=== PATIENT | male | born 1970 | race Caucasian/White ===

== ENCOUNTER 2024-11-14 23:25 | Emergency (ER) | payer MEDICARE, MEDICAID, SELFPAY ==
--- NOTE | ~2024-11-14 | CT_ITS ---
CT CERVICAL SPINE WITHOUT CONTRAST CLINICAL HISTORY: head injury Technique: Axial images thoracic inlet to skull base Sagittal and coronal reformats. No contrast CT images acquired with automatic exposure control for dose reduction DLP: 386 mGy-cm Comparison: None Findings: No acute fracture. Grade 1 anterolisthesis of C2 on 3. Vertebral bodies normal height and alignment. Mild degenerative changes. Disc spaces maintained. Prevertebral soft tissues within normal limits. Visualized lung apices: Nodular scarring. Visualized thyroid: Unremarkable. No enlarged cervical nodes. IMPRESSION: 1. No acute findings. 2. Nodular scarring along the apices. Consider CT chest in 6 months. Reviewed, dictated and finalized at location R.
--- NOTE | ~2024-11-14 | CT_ITS ---
CT HEAD NON-CONTRAST Clinical History: head injury Comparison: None Technique: Unenhanced axial images skull base to vertex Coronal, sagittal reformats CT images acquired with automatic exposure control for dose reduction DLP: 681 mGy-cm Findings: Sulci, ventricles: Unremarkable. No intracerebral hemorrhage. No evidence acute territorial infarct. No mass effect, midline shift. Bony calvarium intact. Visualized paranasal sinuses: Maxillary sinus retention cysts. Frontal sinus disease. Mastoid air cells: Clear. Left posterior scalp contusion. Chronic nasal fractures. IMPRESSION: 1. No acute intracranial findings. Reviewed, dictated and finalized at location R.
[2024-11-14 23:15] VITALS: BP 116/77; PULSE 77; RESP 18; O2SAT 100
--- NOTE | 2024-11-14 23:49 | ED_ITS ---
HPI - General Adult General Chief complaint: Head Injury Stated complaint: head injury History of Present Illness HPI narrative: This is a 54-year-old male schizophrenia who lives in a group home presenting for a head injury. Per group home staff he was requesting medication which bairon christensen did not give him. He then threw himself to the ground striking his head. He did not lose conscious. He then got up and struck his head on the wall. He was given Haldol and Benadryl. He was then sent to the hospital for evaluation. No use of blood thinners. The patient is somewhat sedated at this point which makes it difficult to obtain much history. His only complaint time is soreness in his neck. Related Data Allergies Allergy/AdvReac Type Severity Reaction Status Date / Time No Known Allergies Allergy Verified 11/15/24 00:15 Exam Narrative: APPEARANCE: No apparent distress. Patient is sedated Head: 1.5 cm laceration to the left eyebrow abrasion over the right forehead EYES: EOMI, NOSE: Atraumatic NECK: No midline cervical tenderness, left paracervical tenderness RESPIRATORY: No increased rate of breathing CT AP CARDIOVASCULAR: RRR, ABDOMINAL: Non-distended MUSCULOSKELETAl: No obvious deformities NEURO: Alert. Moving for 4 extremities to command SKIN:: Warm, dry. Normal color PSYCHIATRIC: Normal affect Course Vital Signs Vital signs: Vital Signs Pulse Rate 77 11/14/24 23:15 Respiratory Rate 18 11/14/24 23:15 Blood Pressure 116/77 11/14/24 23:15 Pulse Oximetry 100 11/14/24 23:15 Oxygen Delivery Room Air 11/14/24 23:15 Pulse Rate 77 11/14/24 23:15 Respiratory Rate 18 11/14/24 23:15 Blood Pressure 116/77 11/14/24 23:15 Pulse Oximetry 100 11/14/24 23:15 Oxygen Delivery Room Air 11/14/24 23:15 Procedures Laceration Laceration 1: Date: 11/15/24 Site: face Side (If applicable): left Size (cm): 1.5 Description: linear Depth: simple, single layer Local Anesthetic: bupivacaine 0.25% Amount of anesthesia used (mL): 2 ====== Skin Level ====== Skin layer closed with: prolene Size (cm): 5-0 Number of sutures: 3 Technique: simple, interrupted ====== Subcutaneous Layer ====== ====== Muscle Layer ====== ====== Tendon Layer ====== Medical Decision Making MDM Narrative Medical decision making narrative: -Course: 54-year-old male schizophrenia and behavioral issues presenting with head trauma. Laceration over left eyebrow was repaired. CT of the brain and C- spine is negative for acute injury. Patient be discharged back to the group home. Suture removal in 5-7 days. Return precautions for infection. -DDX includes but is not limited to: Concussion, intracranial hemorrhage, facial laceration Vital Signs Vital Signs: Vital Signs Pulse Rate 77 11/14/24 23:15 Respiratory Rate 18 11/14/24 23:15 Blood Pressure 116/77 11/14/24 23:15 Pulse Oximetry 100 11/14/24 23:15 Oxygen Delivery Room Air 11/14/24 23:15 Pulse Rate 77 11/14/24 23:15 Respiratory Rate 18 11/14/24 23:15 Blood Pressure 116/77 11/14/24 23:15 Pulse Oximetry 100 11/14/24 23:15 Oxygen Delivery Room Air 11/14/24 23:15 Discharge Plan Discharge Clinical Impression: Closed head injury, Laceration Patient Disposition: Home Condition: Stable Instructions: Antibiotic Form, Care For Your Stitches (DC) Additional Instructions: Thomas was seen for a laceration to his eyebrow. Sutures need to be removed in 5-7 days. Return if you develop signs of infection. Patient Language: Micronesian
[2024-11-15] VITALS (9 sets, daily range): BP systolic 101–122; BP diastolic 57–77; O2SAT 99–100
[2024-11-15] MEDS: TETANUS,DIPHTHERIA,AC PERTUSSIS ADULT (0.5 ML) BOOSTRIX IM (00:10)
== END 2024-11-15 02:08 ==
LOC: ANHED 11-15 00:15
PROVIDERS: Emergency Provider Emergency Medicine; PCP Internal Medicine
DX: S01.81XA Laceration without foreign body of other part of head, initial encounter (principal); Z23 Encounter for immunization; F20.9 Schizophrenia, unspecified; W22.09XA Striking against other stationary object, initial encounter; W18.39XA Other fall on same level, initial encounter
CPT/HCPCS: 12011; 70450; 72125; 90471; 90715; 99284

== ENCOUNTER 2025-01-17 05:44 | Emergency (ER) | payer MEDICARE, MEDICAID, SELFPAY ==
[2025-01-17] VITALS (7 sets, daily range): BP systolic 103–149; BP diastolic 71–105; PULSE 84–129; RESP 18–97; TEMP 36.4–36.8; O2SAT 95–98
--- NOTE | ~2025-01-17 | XR_ITS ---
EXAMINATION: XR chest 1V portable DATE: 01/17/2025 07:49 INDICATION: Altered mental status TECHNIQUE: A single frontal view of the chest was obtained. COMPARISON: None. FINDINGS: Left-sided electronic device overlying the upper chest with leads extending into the lower left neck noted. Lung barrera and heart shadow appear within normal limits. No pneumothorax or subphrenic free air seen. IMPRESSION: 1. The lungs are clear and heart size normal. 2. Left-sided chest electronic device with leads extending into the neck of uncertain significance. Reviewed, dictated and finalized at location A. L BALER IMPRESSION: 1. The lungs are clear and heart size normal. 2. Left-sided chest electronic device with leads extending into the neck of unc ertain significance.
--- NOTE | 2025-01-17 06:10 | PC.NURSE ---
Pt trying to climb over bed rail. This nurse asked pt to lay back in bed, pt responded I'm not staying in this fucking bed. Security at bedside and moved pt up in bed. Will continue to monitor.
[2025-01-17 08:17] LABS: Hematocrit 45.6 % (42.0-52.0); Hemoglobin 15.1 g/dL (14.0-18.0); Immature Granulocyte Percent A 0.2 % (0-0.5); Lymphocytes Absolute Auto 2.19 K/mm3 (0.9-3.2); Mean Corpuscular HGB Conc 33.1 g/dl (32-36); Mean Corpuscular Hemoglobin 30.3 pg (26-34); Mean Corpuscular Volume 91.4 fl (80-100); Nucleated Red Blood Cells Absolute Auto 0.000 K/mm3 (0.0-0.012); Nucleated Red Blood Cells Perc 0.0 % (0.0-0.2); Platelet Count Result 183 k/mm3 (150-375); Red Blood Count 4.99 M/mm3 (4.6-6.20); White Blood Count 6.3 K/mm3 (4.5-10.0)
[2025-01-17 08:39] LABS: Alanine Aminotransferase 24 U/L (6-50); Albumin Level 4.4 g/dL (3.5-5.1); Alkaline Phosphatase 66 U/L (38-126); Anion Gap 8 mmol/L (4-12); Aspartate Amino Transferase 28 U/L (17-59); Bilirubin,Total 0.4 mg/dL (0.2-1.3); Blood Urea Nitrogen 17 mg/dL (9-20); Calcium 9.5 mg/dL (8.4-10.2); Carbon Dioxide 28 mmol/L (22-30); Chloride 104 mmol/L (98-107); Estimated CRCL calculation 83 ml/min; Estimated Glomerular Filt Rate > 60; Glucose 95 mg/dL (65-110); Potassium 4.5 mmol/L (3.4-5.0); Sodium 140 mmol/L (137-145); Total Protein 7.9 g/dL (6.3-8.2)
--- NOTE | 2025-01-17 08:43 | ED_ITS ---
HPI - General Adult General Chief complaint: Unspecified Stated complaint: COMBATIVE Time Seen by Provider: 01/17/25 07:07 History of Present Illness HPI narrative: Pt presents after having combative behavior at local [place]. Pt has hx of schizophrenia, TBI and parkinson's. Pt has history of similar behavior in past. Pt calm now. Related Data Allergies Allergy/AdvReac Type Severity Reaction Status Date / Time Hydantoins Allergy Unknown Unknown Verified 01/17/25 12:04 2nd generation antipsychotics AdvReac Severe Other Uncoded 01/17/25 11:56 Review of Systems 2 Review of Systems: ROS unobtainable: Yes unobtainable due to mental status Exam 2 Const: General: comfortable and no acute distress HENMT: Head: normal to inspection Mouth: Yes Normal oral and palatal mucosa present Neck: Neck: normal visual inspection, full ROM and no meningeal signs Resp: Effort & Inspection: normal respiratory effort Auscultation: clear to auscultation bilaterally Cardio: Rate: regular rate Rhythm: regular rhythm GI: Inspection: normal to inspection Auscultation: normal bowel sounds Back/Spine/Pelvis: Back: no CVA tenderness Skin: General skin exam: normal color and no rashes or lesions noted Extrem: General: normal to inspection and full ROM Psych: Appearance: other (non verbal and not answering questions) Course Vital Signs Vital signs: Vital Signs Temperature 98.2 F 01/17/25 05:50 Pulse Rate 101 H 01/17/25 05:50 Respiratory Rate 20 01/17/25 05:50 Blood Pressure 117/80 01/17/25 05:50 Pulse Oximetry 98 01/17/25 05:50 Temperature 97.6 F 01/17/25 16:30 Pulse Rate 84 01/17/25 16:30 Respiratory Rate 97 H 01/17/25 16:30 Blood Pressure 103/71 01/17/25 16:30 Pulse Oximetry 97 01/17/25 16:30 Medical Decision Making MDM Narrative Medical decision making narrative: Pt apparently combative with staff but now calm. will run tests to rule out infection or other cause of behavior. No signs of infection. Pt combative here once controlled with zyprexa. ok to discharge back. Vital Signs Vital Signs: Vital Signs Temperature 98.2 F 01/17/25 05:50 Pulse Rate 101 H 01/17/25 05:50 Respiratory Rate 20 01/17/25 05:50 Blood Pressure 117/80 01/17/25 05:50 Pulse Oximetry 98 01/17/25 05:50 Temperature 97.6 F 01/17/25 16:30 Pulse Rate 84 01/17/25 16:30 Respiratory Rate 97 H 01/17/25 16:30 Blood Pressure 103/71 01/17/25 16:30 Pulse Oximetry 97 01/17/25 16:30 Lab Data 01/17/25 08:08 01/17/25 08:08 Labs: Lab Results 01/17/25 01/17/25 Range/Units 08:08 08:33 WBC 6.3 (4.5-10.0) K/mm3 RBC 4.99 (4.6-6.20) M/mm3 Hgb 15.1 (14.0-18.0) g/dL Hct 45.6 (42.0-52.0) % MCV 91.4 (80-100) fl MCH 30.3 (26-34) pg MCHC 33.1 (32-36) g/dl RDW 13.0 (11.5-14.5) % Plt Count 183 (150-375) k/mm3 MPV 9.9 (7.4-10.4) fl Immature Gran % (Auto) 0.2 (0-0.5) % Neut % (Auto) 47.0 (45.5-73.1) % Lymph % (Auto) 35.0 (18.3-44.2) % [place] % (Auto) 14.7 H (2.6-8.5) % Eos % (Auto) 2.6 (0-4.4) % Baso % (Auto) 0.5 (0.2-1.2) % Lymph # (Auto) 2.19 (0.9-3.2) K/mm3 [place] # (Auto) 0.9 H (0.1-0.6) K/mm3 Eos # (Auto) 0.2 (0-0.3) K/mm3 Baso # (Auto) 0.0 (0.0-0.1) K/mm3 Abs Immat Gran (auto) 0.01 (0.00-0.031) K/mm3 Absolute Neuts (auto) 2.9 (1.3-6.7) K/mm3 Absolute Nucleated RBC 0.000 (0.0-0.012) K/mm3 Nucleated RBC % 0.0 (0.0-0.2) % Sodium 140 (137-145) mmol/L Potassium 4.5 (3.4-5.0) mmol/L Chloride 104 (98-107) mmol/L Carbon Dioxide 28 (22-30) mmol/L Anion Gap 8 (4-12) mmol/L BUN 17 (9-20) mg/dL Creatinine 0.85 (0.7-1.3) mg/dL Estim Creat Clear Calc 83 ml/min Estimated GFR > 60 (59 - ) Glucose 95 (65-110) mg/dL Lactic Acid 1.5 (0.7-2.0) mmol/L Calcium 9.5 (8.4-10.2) mg/dL Total Bilirubin 0.4 (0.2-1.3) mg/dL AST 28 (17-59) U/L ALT 24 (6-50) U/L Alkaline Phosphatase 66 (38-126) U/L Total Protein 7.9 (6.3-8.2) g/dL Albumin 4.4 (3.5-5.1) g/dL Urine Color Yellow (Yellow) Urine Appearance Turbid H (Clear) Urine pH 8.5 (5.0-9.0) Ur Specific [place] 1.022 (1.001-1.035) Urine Protein Trace (Negative) mg/dL Urine Glucose (UA) Negative (Negative) mg/dL Urine Ketones Negative (Negative) mg/dL Ur Blood (Man) Negative (Negative) Urine Nitrate Negative (Negative) Urine Bilirubin Negative (Negative) Urine Urobilinogen 1.0 (<2.0) mg/dL Add Ur Microanalysis Reviewed Leukocyte Esterase Rfl Negative (Negative) LUIS/UL Urine RBC 0-2 (0-2) /hpf Urine WBC 0-5 (0-3) /hpf Ur Squamous Epith Cells None seen (Few) /hpf Amorphous Sediment Moderate H (None) Urine Bacteria None seen /hpf Urine Casts 0-2 Imaging Data Attestation: I personally reviewed and interpreted this imaging study as follows: My impression: no acute process Radiologist's impression: [facility] [address] [place] [id number] XRay Report Signed Patient: Thomas Locke : 1970 MR#: [id number] Age: 54 Acct:[id number] Loc: [facility] ADM Date: 01/17/[address]: Ordering Physician: Shara Molina III, DO Date of Service: 01/17/25 Procedure(s): XR chest 1V portable Accession Number(s): [id number] cc: Shara Molina III, DO; Magdalena,Arianna Lopez~ EXAMINATION: XR chest 1V portable DATE: 01/17/2025 07:49 INDICATION: Altered mental status TECHNIQUE: A single frontal view of the chest was obtained. COMPARISON: None. FINDINGS: Left-sided electronic device overlying the upper chest with leads extending into the lower left neck noted. Lung barrera and heart shadow appear within normal limits. No pneumothorax or subphrenic free air seen. IMPRESSION: 1. The lungs are clear and heart size normal. 2. Left-sided chest electronic device with leads extending into the neck of uncertain significance. Reviewed, dictated and finalized at location A. HOSPICE AIDE Please be advised this is a medical document. It is intended for [id number] communication. It is written in medical language and may contain unfamiliar abbreviations or verbiage. Medical documents are intended to carry relevant information, facts as evident, and the clinical opinion of the practitioner at the time of the encounter. This report may have been done utilizing a voice recognition system. Attempts have been made to correct errors. However, there may be uncorrected grammatical, spelling, and recognition errors present. The file time of this note does not necessarily represent the time of service. Dictated By: Michael Stubbs MD 01/17/25 0808 Signed By: <Electronically signed by Michael Stubbs MD in OV> 01/17/25 0809 Restraint Face to Face Eval ED Reason for Restraint Aggressive/Violent Evaluation Findings Date Seen by EDP: 01/17/25 Time Seen by EDP: 07:10 Pt's immediate situation:: Pt initially calm but then became aggresive and violent trying to get off cart. Pt initially given Zyprexa 10 mg IM Pt's reaction to intervention:: Pt became more agitated and trying to get off cart soft restraints applied after multiple attempts at verbal deescalation. Pt also received Haldol 10 mg and valium 5 mg then valium 10 mg IM then droperidol 5 mg IM. Facility contacted. recommended Benadryl IM as this has helped in past. Pt moved to no stimulating room. Pt finally calmed down and is ready for transfer back to facility. soft restraints removed prior and pt tolerated well. Pt's med/behavioral condition:: see above Restraint or Seclusion Need Need to continue or terminate:: see above Discharge Plan Discharge Clinical Impression: Combative behavior Patient Disposition: NH Halfway/Asst Living Condition: Improved Instructions: Antibiotic Form, Schizophrenia (ED) Patient Language: Wallisian Follow-up/Referrals: Magdalena,Jessica Keller [Primary Care Provider]
[2025-01-17 08:56] LABS: Add Urine Microscopic? YES; Appearance Urine Turbid (Clear); Glucose Urine UA Negative (Negative); Leukocyte Esterase Ur Negative LEU/UL (Negative); Need Manual Microscopic Reviewed; Nitrate Urine Negative (Negative); Non Pathogenic Casts 0-2; Specific Grav Ur 1.022 (1.001-1.035)
[2025-01-17] MEDS: OLANZapine 10 MG, WATER, STERILE FOR INJECTION 2.1 ML IM (08:57)
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
--- NOTE | 2025-01-17 11:20 | PC.NURSE ---
This RN spoke with Alexander at [facility] letting him know that pt. is being d/c back to facility. Alexander alerted this RN that the pt. cannot have 2nd generation antipsychotics d/t having NMS. Alexander states that pt. can only have 1st generation antipsychotics. Alexander concerned d/t pt. receiving Zyprexa this morning. Medication given prior to this RN coming on shift at [address] Molina updated of new information. Adverse reaction added to pt. chart in [facility]. Reaction not listen on adverse reaction list on paperwork from facility. Alexander states they will add that under his allergy/adverse reaction list. VS obtained. No NMS reaction at this time.
--- NOTE | 2025-01-17 11:30 | PC.NURSE ---
This RN attempted to call pt. primary contact and guardian Arian Lynn with no answer.
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
[2025-01-17] MEDS: diazePAM INJ (*CRX) 10 MG/2 ML SYRINGE 5 MG IM (11:53)
[2025-01-17] MEDS: HALOPERIDOL LACTATE 5 MG/ML VIAL 10 MG IM (11:53)
--- NOTE | 2025-01-17 13:00 | PC.NURSE ---
Pt. continues to yell hey motherfucker! repeatedly at staff. SHITAL Lehman assisted pt. with drinking a soda. Pt. able to drink with no signs of aspiration. Security remains at bedside.
[2025-01-17] MEDS: diazePAM INJ (*CRX) 10 MG/2 ML SYRINGE IM (13:18)
--- NOTE | 2025-01-17 14:17 | PC.NURSE ---
Pt. moved to a private room to help minimize stimulation.
--- NOTE | 2025-01-17 14:50 | PC.NURSE ---
This RN spoke with facility staff, Alexander. Alexander notified of pt. increased agitation since prior phone call. Alexander alerted this RN of tips to help calm down the pt. Dr. Molina notified of phone conversation. See MAR for additional interventions. Goal for [facility] as well is for pt. to be in a place where he can safely be transported back to [facility] via EMS
--- NOTE | 2025-01-17 16:43 | PC.NURSE ---
Report given to [facility], all questions answered. Pt. calm at time of transport.
--- NOTE | 2025-01-17 16:50 | PC.NURSE ---
Kae phoned by this RN and notified that pt. is en route to them via EMS.
== END 2025-01-17 16:50 ==
PROVIDERS: Emergency Provider Emergency Medicine; PCP Internal Medicine
DX: R45.6 Violent behavior (principal); F20.9 Schizophrenia, unspecified; G20.A1 Parkinson's disease without dyskinesia, without mention of fluctuations; Z87.820 Personal history of traumatic brain injury
CPT/HCPCS: 36415; 71045; 80053; 81001; 83605; 85025; 96372; 99284; J1200; J1630; J1790; J2359; J3360

== ENCOUNTER 2025-01-27 08:47 | Emergency (ER) | payer MEDICARE, MEDICAID, SELFPAY ==
[2025-01-27] VITALS (10 sets, daily range): BP systolic 102–144; BP diastolic 70–94; PULSE 72–107; RESP 10–16; O2SAT 95–100
--- NOTE | ~2025-01-27 | XR_ITS ---
Examination: XR chest 1V portable Clinical History: Combative Comparison: 01/17/2025 Technique: Portable AP Findings: Left vagal stimulator. Heart size normal. Lungs clear. No acute bony abnormality. IMPRESSION: 1. No acute cardiopulmonary findings given portable technique. Reviewed, dictated and finalized at location R. DER LABORER
--- NOTE | ~2025-01-27 | CT_ITS ---
CT HEAD NON-CONTRAST Clinical History: head injury Comparison: 11/14/2024 Technique: Unenhanced axial images skull base to vertex Coronal, sagittal reformats CT images acquired with automatic exposure control for dose reduction DLP: 908 mGy-cm Findings: Sulci, ventricles: Unremarkable. No intracerebral hemorrhage. No evidence acute territorial infarct. No mass effect, midline shift. Bony calvarium intact. Visualized paranasal sinuses: Clear. Mastoid air cells: Clear. Chronic nasal fractures. IMPRESSION: 1. No acute intracranial findings. Reviewed, dictated and finalized at location R. TOR CRANE ENGINEER
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
[2025-01-27] MEDS: MIDAZOLAM HCL (*CRX) 2 MG/2 ML VIAL 5 MG IM (09:14)
[2025-01-27 09:47] LABS: Hematocrit 37.5 % (42.0-52.0); Hemoglobin 12.5 g/dL (14.0-18.0); Immature Granulocyte Percent A 0.3 % (0-0.5); Lymphocytes Absolute Auto 1.58 K/mm3 (0.9-3.2); Mean Corpuscular HGB Conc 33.3 g/dl (32-36); Mean Corpuscular Hemoglobin 30.4 pg (26-34); Mean Corpuscular Volume 91.2 fl (80-100); Nucleated Red Blood Cells Absolute Auto 0.000 K/mm3 (0.0-0.012); Nucleated Red Blood Cells Perc 0.0 % (0.0-0.2); Platelet Count Result 177 k/mm3 (150-375); Red Blood Count 4.11 M/mm3 (4.6-6.20); White Blood Count 3.9 K/mm3 (4.5-10.0)
[2025-01-27 10:16] LABS: Add Urine Microscopic? YES; Appearance Urine Clear (Clear); Glucose Urine UA Negative (Negative); Leukocyte Esterase Ur Negative LEU/UL (Negative); Nitrate Urine Negative (Negative); Non Pathogenic Casts 0-2; Specific Grav Ur 1.025 (1.001-1.035)
[2025-01-27 10:45] LABS: Alanine Aminotransferase 28 U/L (6-50); Albumin Level 3.9 g/dL (3.5-5.1); Alkaline Phosphatase 61 U/L (38-126); Anion Gap 8 mmol/L (4-12); Aspartate Amino Transferase 40 U/L (17-59); Bilirubin,Total 0.3 mg/dL (0.2-1.3); Blood Urea Nitrogen 17 mg/dL (9-20); Calcium 8.8 mg/dL (8.4-10.2); Carbon Dioxide 25 mmol/L (22-30); Chloride 105 mmol/L (98-107); Estimated Glomerular Filt Rate > 60; Glucose 91 mg/dL (65-110); Potassium 3.8 mmol/L (3.4-5.0); Sodium 138 mmol/L (137-145); Total Protein 7.0 g/dL (6.3-8.2)
[2025-01-27 10:52] LABS: Cannabinoid Screen Urine Negative (Negative)
[2025-01-27 11:17] LABS: Thyroid Stimulating Hormone 3.890 uIU/mL (0.465-4.680)
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
[2025-01-27] MEDS: diazePAM INJ (*CRX) 10 MG/2 ML SYRINGE 5 MG IV PUSH ×2 (13:35→15:07)
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
--- NOTE | 2025-01-27 13:58 | PC.NURSE ---
RN removed violent restraints at 1208.
--- NOTE | 2025-01-27 14:17 | PC.NURSE ---
RN called crisis and spoke with Cyndi at 1417, they will send someone out to evaluate pt.
--- NOTE | 2025-01-27 14:18 | PC.NURSE ---
Spoke with SHITAL Crain at [facility] for a pt update.
--- NOTE | 2025-01-27 16:07 | PC.NURSE ---
Rn removed lockable left wrist restraint per EDP verbal order
[2025-01-27] MEDS: DIVALPROEX SODIUM ER 500 MG TAB.24H 1000 MG PO (16:51)
--- NOTE | 2025-01-27 16:57 | PC.NURSE ---
removed lockable right ankle restraint
--- NOTE | 2025-01-27 17:14 | PC.NURSE ---
RN removed locked left ankle restraint from patient
--- NOTE | 2025-01-27 17:53 | PC.NURSE ---
Called report to Breann at [facility] at 1750.
== END 2025-01-27 19:15 ==
PROVIDERS: Emergency Provider Emergency Medicine; PCP Internal Medicine
DX: R45.1 Restlessness and agitation (principal); S01.112A Laceration without foreign body of left eyelid and periocular area, initial encounter; G20.C Parkinsonism, unspecified; G40.A09 Absence epileptic syndrome, not intractable, without status epilepticus; F20.9 Schizophrenia, unspecified; Z87.820 Personal history of traumatic brain injury; X58.XXXA Exposure to other specified factors, initial encounter
CPT/HCPCS: 36415; 70450; 71045; 80053; 80307; 81001; 82077; 84443; 85025; 96372; 96374; 96376; 99284; A9270; J2250; J3360

== ENCOUNTER 2025-02-16 14:11 | Emergency (ER) | payer MEDICARE, MEDICAID, SELFPAY ==
[2025-02-16] VITALS (14 sets, daily range): BP systolic 92–136; BP diastolic 62–84; PULSE 68–87; RESP 11–20; TEMP 36.4–36.7; O2SAT 97–100
--- NOTE | ~2025-02-16 | XR_ITS ---
EXAMINATION: XR chest 1V portable DATE: 02/16/2025 14:37 INDICATION: Seizure. TECHNIQUE: A single frontal view of the chest was obtained. COMPARISON: Chest x-ray dated 01/27/2025 FINDINGS: Heart size is normal. Significant atherosclerotic aorta. Lungs do not show acute findings. Neurostimulator is in place similar to prior study. IMPRESSION: 1. No acute findings. Atherosclerotic aorta. Reviewed, dictated and finalized at location T. CHUTE CROWN SEWER
--- NOTE | ~2025-02-16 | XR_ITS ---
EXAMINATION: XR wrist LT min 3V, 02/16/2025 17:30 FISHER PURSE SEINE HISTORY: pain COMPARISON: No comparisons available. Findings: No acute fracture or malalignment. No significant degenerative changes. Soft tissues unremarkable. Impression: No acute fracture or malalignment. Reviewed, dictated and finalized at location P. ER PURSE SEINE Impression: No acute fracture or malalignment.
[2025-02-16 14:35] LABS: Hematocrit 37.6 % (42.0-52.0); Hemoglobin 12.4 g/dL (14.0-18.0); Immature Granulocyte Percent A 0.7 % (0-0.5); Lymphocytes Absolute Auto 1.35 K/mm3 (0.9-3.2); Mean Corpuscular HGB Conc 33.0 g/dl (32-36); Mean Corpuscular Hemoglobin 30.2 pg (26-34); Mean Corpuscular Volume 91.5 fl (80-100); Nucleated Red Blood Cells Absolute Auto 0.000 K/mm3 (0.0-0.012); Nucleated Red Blood Cells Perc 0.0 % (0.0-0.2); Platelet Count Result 282 k/mm3 (150-375); Red Blood Count 4.11 M/mm3 (4.6-6.20); White Blood Count 6.2 K/mm3 (4.5-10.0)
[2025-02-16 14:51] LABS: Alanine Aminotransferase 23 U/L (6-50); Albumin Level 4.3 g/dL (3.5-5.1); Alkaline Phosphatase 65 U/L (38-126); Anion Gap 10 mmol/L (4-12); Aspartate Amino Transferase 32 U/L (17-59); Bilirubin,Total 0.4 mg/dL (0.2-1.3); Blood Urea Nitrogen 11 mg/dL (9-20); Calcium 8.9 mg/dL (8.4-10.2); Carbon Dioxide 22 mmol/L (22-30); Chloride 105 mmol/L (98-107); Estimated Glomerular Filt Rate > 60; Glucose 95 mg/dL (65-110); Potassium 4.0 mmol/L (3.4-5.0); Sodium 137 mmol/L (137-145); Total Protein 8.0 g/dL (6.3-8.2)
[2025-02-16 15:32] LABS: Magnesium 1.8 mg/dL (1.6-2.3)
--- NOTE | 2025-02-16 17:28 | ED.GENADULT ---
HPI - General Adult General Chief complaint: Seizure Stated complaint: seizure Time Seen by Provider: 02/16/25 14:38 History of Present Illness HPI narrative: Patient 54-year-old gentleman presents emergency department with chief complaint of seizures. The patient has prior history of seizures and had 3 generalized seizures at the facility where he is resident of facility reports that he is taking his seizures patient has prior history of seizures in the past and had a severe traumatic brain injury and schizophrenia. Related Data Allergies Allergy/AdvReac Type Severity Reaction Status Date / Time Hydantoins Allergy Unknown Unknown Verified 01/17/25 12:04 2nd generation antipsychotics AdvReac Severe Other Uncoded 01/17/25 11:56 Review of Systems Review of Systems: A 10 system review of systems was completed on the patient and is negative except for what is stated in the HPI. Nursing and ancillary documentation was reviewed. [facility] Past Medical History Medical History Schizophrenia Focal and partial seizures Malignant neuroleptic syndrome Subdural hemorrhage Traumatic brain injury Parkinsonism Exam Narrative: GENERAL: Well-appearing, well-nourished, and in no acute distress. HEAD: Normocephalic, atraumatic. EYES: PERRLA and EOMI. ENT: Nares clear, no rhinorrhea or epistaxis. Mucous membranes moist. NECK: Supple. CHEST: Clear to auscultation. No respiratory distress. HEART: Regular rate and rhythm. No murmur heard. Normal peripheral pulses. ABDOMEN: Soft, nontender, nondistended, normal active bowel sounds. EXTREMITIES: Normal range of motion. No edema. SKIN: Warm, dry, no rash. NEURO: No focal deficits. Alert and oriented to baseline status. PSYCH: Normal mood and affect. Course Vital Signs Vital signs: Vital Signs Temperature 36.4 C 02/16/25 13:54 Pulse Rate 87 02/16/25 13:54 Respiratory Rate 16 02/16/25 13:54 Blood Pressure 108/62 02/16/25 13:54 Pulse Oximetry 97 02/16/25 13:54 Temperature 36.4 C 02/16/25 13:54 Pulse Rate 80 02/16/25 17:47 Respiratory Rate 16 02/16/25 17:44 Blood Pressure 136/84 02/16/25 17:44 Pulse Oximetry 98 02/16/25 17:44 Oxygen Delivery Room Air 12/12/25 14:10 [facility] Differential Diagnosis Differential Diagnosis: Breakthrough seizure, generalized seizure, infection, electrolyte abnormality Patient is back to his baseline neurological status upon arrival to the emergency department the patient was initially postictal patient refused CT head chest x-ray showed no focal infiltrate the patient was complaining pain in his left hand where the IV was an x-ray was obtained showed no evidence of fracture laboratory studies did show a slightly elevated lactate this was after the patient had had 3 seizures prior to arrival electrolytes otherwise within normal limits urinalysis showed no evidence UTI valproic acid was 53.9 Patient will be discharged back to his facility a we recommended to follow-up with his neurologist Lab Data 02/16/25 14:02/16/25: Labs: Lab Results 02/16/25 02/16/25 Range/Units 14: 18:28 WBC 6.2 (4.5-10.0) K/mm3 RBC 4.11 L (4.6-6.20) M/mm3 Hgb 12.4 L (14.0-18.0) g/dL Hct 37.6 L (42.0-52.0) % MCV 91.5 (80-100) fl MCH 30.2 (26-34) pg MCHC 33.0 (32-36) g/dl RDW 13.6 (11.5-14.5) % Plt Count 282 D (150-375) k/mm3 MPV 9.6 (7.4-10.4) fl Immature Gran % (Auto) 0.7 H (0-0.5) % Neut % (Auto) 64.2 (45.5-73.1) % Lymph % (Auto) 22.0 (18.3-44.2) % [place] % (Auto) 9.6 H (2.6-8.5) % Eos % (Auto) 2.8 (0-4.4) % Baso % (Auto) 0.7 (0.2-1.2) % Lymph # (Auto) 1.35 (0.9-3.2) K/mm3 [place] # (Auto) 0.6 (0.1-0.6) K/mm3 Eos # (Auto) 0.2 (0-0.3) K/mm3 Baso # (Auto) 0.0 (0.0-0.1) K/mm3 Abs Immat Gran (auto) 0.04 H (0.00-0.031) K/mm3 Absolute Neuts (auto) 4.0 (1.3-6.7) K/mm3 Absolute Nucleated RBC 0.000 (0.0-0.012) K/mm3 Nucleated RBC % 0.0 (0.0-0.2) % Sodium 137 (137-145) mmol/L Potassium 4.0 (3.4-5.0) mmol/L Chloride 105 (98-107) mmol/L Carbon Dioxide 22 (22-30) mmol/L Anion Gap 10 (4-12) mmol/L BUN 11 D (9-20) mg/dL Creatinine 0.79 (0.7-1.3) mg/dL Estim Creat Clear Calc Not Reportable Estimated GFR > 60 (59 - ) Glucose 95 (65-110) mg/dL Lactic Acid 3.5 H (0.7-2.0) mmol/L Calcium 8.9 (8.4-10.2) mg/dL Magnesium 1.8 (1.6-2.3) mg/dL Total Bilirubin 0.4 (0.2-1.3) mg/dL AST 32 (17-59) U/L ALT 23 (6-50) U/L Alkaline Phosphatase 65 (38-126) U/L Total Protein 8.0 (6.3-8.2) g/dL Albumin 4.3 (3.5-5.1) g/dL Urine Color Yellow (Yellow) Urine Appearance Clear (Clear) Urine pH 7.5 (5.0-9.0) Ur Specific [place] 1.014 (1.001-1.035) Urine Protein Negative (Negative) mg/dL Urine Glucose (UA) Negative (Negative) mg/dL Urine Ketones Negative (Negative) mg/dL Ur Blood (Man) Negative (Negative) Urine Nitrate Negative (Negative) Urine Bilirubin Negative (Negative) Urine Urobilinogen 1.0 (<2.0) mg/dL Leukocyte Esterase Rfl Negative (Negative) LUIS/UL Valproic Acid 53.9 (50-120) ug/mL Imaging Data Radiologist's impression: ITS Impressions Chest X-Ray 02/16/25 14:38 IMPRESSION: 1. No acute findings. Atherosclerotic aorta. Wrist X-Ray 02/16/25 17:39 Impression: No acute fracture or malalignment. Discharge Plan Discharge Clinical Impression: Breakthrough seizure Patient Disposition: NH Senior Living/Asst Living Condition: Stable Instructions: Antibiotic Form, Epilepsy (ED) Additional Instructions: Please follow-up with your neurologist it is recommended that he call to schedule an appointment as soon as possible Patient Language: Northern Irish Follow-up/Referrals: Magdalena,Jessica Keller [Primary Care Provider] Time of Disposition: 20:06
--- NOTE | 2025-02-16 17:47 | PC.NURSE ---
pt seen trying to exit the bed, climbed over the bed, before touching the floor, pt was helped by this video games storywriter. pt asking to use the restroom. pt assisted to bedside commode, urine obtained. a few minutes later, pt complained of pain at IV site in left wrist. order obtained for xray
[2025-02-16] MEDS: MIDAZOLAM HCL (*CRX) 2 MG/2 ML VIAL IV PUSH (17:56)
[2025-02-16 18:58] LABS: Add Urine Microscopic? NO; Appearance Urine Clear (Clear); Glucose Urine UA Negative (Negative); Leukocyte Esterase Ur Negative LEU/UL (Negative); Nitrate Urine Negative (Negative); Specific Grav Ur 1.014 (1.001-1.035)
== END 2025-02-16 20:43 ==
PROVIDERS: Emergency Provider Emergency Medicine; PCP Internal Medicine
DX: G40.909 Epilepsy, unspecified, not intractable, without status epilepticus (principal); M79.642 Pain in left hand; G20.C Parkinsonism, unspecified; F20.9 Schizophrenia, unspecified; Z87.820 Personal history of traumatic brain injury
CPT/HCPCS: 36415; 71045; 73110; 80053; 80164; 81003; 83605; 83735; 85025; 93005; 96374; 99284; J2250

== ENCOUNTER 2025-02-21 02:45 | Emergency (ER) | payer MEDICARE, MEDICAID, SELFPAY ==
--- NOTE | ~2025-02-21 | XR_ITS ---
Examination: XR pelvis 1-2V Clinical History: fall Comparison: None Technique: AP pelvis Findings/impression: 1. No pelvic or hip fracture identified. Reviewed, dictated and finalized at location R. TH SERVICES COORDINATOR
[2025-02-21 02:46] VITALS: BP 109/73; PULSE 62; RESP 16; TEMP 36.6; O2SAT 100
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
[2025-02-21] MEDS: ACETAMINOPHEN 500 MG TABLET 1000 MG PO (03:03)
[2025-02-21 03:46] VITALS: BP 124/63; PULSE 61; RESP 16; O2SAT 100
== END 2025-02-21 03:48 ==
PROVIDERS: Emergency Provider Student in an Organized Health Care Education/Training Program; PCP Internal Medicine
DX: R45.1 Restlessness and agitation (principal); S39.92XA Unspecified injury of lower back, initial encounter; G40.909 Epilepsy, unspecified, not intractable, without status epilepticus; G20.A1 Parkinson's disease without dyskinesia, without mention of fluctuations; F02.80 Dementia in other diseases classified elsewhere, unspecified severity, without behavioral disturbance, psychotic disturbance, mood disturbance, and anxiety; F20.9 Schizophrenia, unspecified; Z87.820 Personal history of traumatic brain injury; W04.XXXA Fall while being carried or supported by other persons, initial encounter; Y93.F2 Activity, caregiving, lifting
CPT/HCPCS: 72170; 99283; A9270